=== PATIENT | female | born 1945 | race Caucasian/White ===

== ENCOUNTER 2018-03-18 13:55 | Emergency (ER) | payer MEDICARE ==
[~2018-03-18] VITALS: Ht 170.2 cm; Wt 73.6 kg
[2018-03-18 13:57] VITALS: Ht 170.2 cm; Wt 73.6 kg
[2018-03-18] MEDS ORDERED: COZAAR100 MG PO (14:00)
[2018-03-18] MEDS ORDERED: LIPITOR10 MG PO (14:00)
[2018-03-18] MEDS ORDERED: TOPROL XL50 MG PO (14:01)
[2018-03-18] MEDS ORDERED: HYDRALAZINE HCL10 MG PO (14:02)
[2018-03-18 14:26] LABS: BASOPHILS 0.3 % (0-2); EOSINOPHILS 1.1 % (0-7); HEMATOCRIT 39.3 % (36.0-48.0); HEMOGLOBIN 13.6 g/dL (12-16); IMMATURE GRANULOCYTES 0.3 % (0-5); LYMPHOCYTES 28.5 % (15-50); MCH 30.8 pg (26.0-34.0); MCHC 34.6 g/dL (31.0-37.0); MCV 89.1 fL (80.0-100.0); MEAN PLATELET VOLUME 9.6 fL (7.4-10.4); MONOCYTES 4.5 % (2-11); NEUTROPHILS 65.3 % (40-80); PLATELET COUNT 262 10x3/uL (130-400); RBC 4.41 10x6/uL (4.00-5.40); RDW 13.3 % (11.5-14.5); WBC 6.5 10x3/uL (4.8-10.8)
[2018-03-18 14:38] LABS: INR 0.97 (0.85-1.17); PROTIME 12.5 SECONDS (11.6-15.0)
[2018-03-18 14:39] LABS: APTT 35.7 SECONDS (22.8-39.4)
[2018-03-18 14:40] LABS: D-DIMER-QUANTITATIVE 0.29 ug/mLFEU (0.20-0.54)
[2018-03-18 14:50] LABS: ALBUMIN 3.7 g/dL (3.4-5.0); ALKALINE PHOSPHATASE 87 U/L (46-116); ALT (SGPT) 30 U/L (10-68); CALC OSMOLALITY 276 mosm/kg (275-300); CALCIUM 9.9 mg/dL (8.5-10.1); CARBON DIOXIDE 30.9 mmol/L (21.0-32.0); CHLORIDE - SERUM 100 mmol/L (98-107); CREATININE - SERUM 0.9 mg/dL (0.6-1.3); GLUCOSE 109 mg/dL (74-106); POTASSIUM - SERUM 3.5 mmol/L (3.5-5.1); PROTEIN - SERUM 7.7 g/dL (6.4-8.2); SODIUM 137 mmol/L (136-145); UREA NITROGEN 17 mg/dL (7-18); eGFR NON AFRICAN AMERICAN 65 mL/min (90-120)
[2018-03-18 15:02] LABS: CKMB 0.8 U/L (0.0-3.6); CREATINE KINASE 210 UL (21-215); MAGNESIUM - SERUM 2.2 mg/dL (1.8-2.4); TROPONIN-I 0.024 ng/mL (0.000-0.060)
[2018-03-18 17:11] VITALS: BP 133/88
== END 2018-03-18 17:11 | disposition home or self-care (01) ==
LOC: D.ER 13:55
PROVIDERS: Family Medicine
DX: I10 Essential (primary) hypertension (principal); E87.5 Hyperkalemia; R07.89 Other chest pain

== ENCOUNTER 2019-04-25 05:00 | Day surgery (SDC) | payer MEDICARE ==
[2019-04-24 13:27] LABS: HEMATOCRIT 40.3 % (36.0-48.0); HEMOGLOBIN 13.7 g/dL (12-16); MCH 30.6 pg (26.0-34.0); MEAN PLATELET VOLUME 9.3 fL (7.4-10.4); RBC 4.48 10x6/uL (4.00-5.40); RDW 12.9 % (11.5-14.5); WBC 6.6 10x3/uL (4.8-10.8)
[2019-04-24 14:25] LABS: ANION GAP 12.7 mmol/L (8-16); CALCIUM 9.5 mg/dL (8.5-10.1); POTASSIUM - SERUM 3.7 mmol/L (3.5-5.1)
[~2019-04-25] VITALS: Ht 170.2 cm; Wt 73.9 kg
--- NOTE | ~2019-04-25 | OP ---
PATIENT NAME: NICHOL ROBLES MEDICAL RECORD: [id number] :43 LOCATION:D.OPS ADMISSION DATE: SURGEON: GALEN ROSE DPM DATE OF OPERATION: 04/25/2019 PREOPERATIVE DIAGNOSES: 1. Posterior calcaneal spurring with intratendinous calcifications, left foot. 2. Achilles tendon disruption, left foot. POSTOPERATIVE DIAGNOSES: 1. Posterior calcaneal spurring with intratendinous calcifications, left foot. 2. Achilles tendon disruption, left foot. PROCEDURES: 1. Gastroc recession, left leg. 2. Posterior calcaneal spur removal with removal of intratendinous calcifications. 3. Repair of Achilles tendon, left foot. ANESTHESIA: General with preoperative popliteal block per the anesthesia department. HEMOSTASIS: Left thigh tourniquet at 350 mmHg. PREOPERATIVE DETAILS: The patient was taken to the OR and while lying supine on the gurney, the patient was given general anesthesia. The patient was then placed in the operating table in a prone position. The left extremity was then prepped and draped in the usual aseptic technique followed by exsanguination and inflation of tourniquet. PROCEDURE #1: Gastroc recession, left leg. A 4-cm linear incision was made over the posterior aspect of the left gastroc aponeurosis. The incision was deepened down through subcutaneous tissue being sure to avoid the sural nerve and vein. Dissection was carried down to the peritenon where a linear peritenon incision was made. The peritenon was freed and an incision was made in a V-fashion through the aponeurosis with the foot held in dorsiflexion allowing adequate dorsiflexion of the ankle joint. The wound was flushed and the skin was closed with skin rohit. PROCEDURE #2: Calcaneal spur with removal of intratendinous calcifications of the Achilles tendon. A 15-blade was used to create a 4-cm linear incision over the posterior aspect of the left heel. The incision was deepened down through subcutaneous tissue being sure to avoid all vital structures. Dissection was carried down to the peritenon where a linear incision was made. The Achilles tendon was freed, visualized. At this time, the Achilles tendon was freed from the posterior aspect of the calcaneus. There was noted to be significant posterior calcaneal spurring with intratendinous calcifications. This was all resected and removed, both with dissection as well as a bone saw. Following this, the wound was flushed. PROCEDURE #3: Repair of Achilles tendon, left foot. Utilizing four suture anchors with FiberWire, the Achilles tendon was repaired back to the posterior aspect of the calcaneus in a rigid fashion with excellent reduction of the enlargement as well as strength of the Achilles tendon. The ankle joint was put through range of motion noting excellent structural integrity. The wound was OPERATIVE REPORT [id number] NICHOL ROBLES flushed. The peritenon was repaired with 2-0 Vicryl. The subcutaneous tissue was repaired with 4-0 Rapide and the skin was closed with 4-0 Rapide in a subcuticular technique followed by Dermabond. Adaptic, 4 x 4 and Conform were used to dress the wound followed by application of modified Arroyo compression dressing. The tourniquet was deflated. POSTOPERATIVE DETAILS: The patient tolerated the procedure well and left the OR with vital signs stable and vascular status at preoperative levels. The patient was transported to recovery per anesthesia in stable condition. TRANSINT:[id number] Voice Confirmation ID: [id number] DOCUMENT ID: [id number] GALEN ROSE DPM CC: [id number] DICTATION DATE: 04/25/19 0843 MANAGER COMPLETIONS: 04/25/19 1029 [facility] [address] [id number]
[~2019-04-25 05:00] MED LIST: ASCORBIC ACID500 MG PO; ASPIRIN EC81 M1 PO; COZAAR100 MG PO; HYDRALAZINE HCL25 MG PO; HYZAAR 50-12.51 TAB PO; LIPITOR10 MG PO; MAG-OXIDE400 MG PO; MULTI-DAY VITAM1 TAB PO; TOPROL XL50 MG PO; VITAMIN D31000 UNI2 PO
[2019-04-25 05:46] VITALS: BP 150/94; Ht 170.2 cm; Wt 73.9 kg
--- NOTE | 2019-04-25 09:44 | NUR ---
0850 PATIENT AROUSABLE COMPLAINING OF DIFFICULTY BREATHING. WEAK BILATERAL HAND LINE PALLETIZER AND UNABLE TO HOLD HEAD OFF OF STRETCHER. ANESTHESIA NOTIFIED. Juan Luis GARCIA WASTE TRANSPORTATION TECHNICIAN AND GARY ALVARADO WASTE TRANSPORTATION TECHNICIAN AT BEDSIDE. NEOSTIGMINE AND ROBINOL GIVEN BY WASTE TRANSPORTATION TECHNICIAN.
--- NOTE | 2019-04-25 09:47 | NUR ---
0855 PATIENT ABLE TO HOLD HEAD OFF OF STRETCHER FOR 5 SECONDS. Alan GARCIA EXTRACT OPERATOR AT BESIDE. PATIENT COMPLAIN OF DIFFICULTY BREATHING, STRIDOR PRESENT IN UPPER AIRWAY, BREATH SOUNDS CLEAR. RACEMIC EPI UPD, CHEST XRAY AND 12 LEAD ECG ORDERED AND PERFORMED.
--- NOTE | 2019-04-25 09:49 | NUR ---
0915 PATIENT AWAKE AND ALERT. BREATHING NORMALLY. NO COMPLAINTS OF SOB. SAO2 >99 ON 10L MASK.
--- NOTE | 2019-04-25 13:54 | NUR ---
1100-DISCHARGE CRITERIA MET. REMOVED IV FROM RIGHT HAND WITH CATH INTACT,DISPOSED INTO SHARPS.COVERED SITE WITH BANDAID. REVIEWED POST OPERATIVE AND FOLLOW UP APPOINTMENT WITH PT. VERBALIZED UNDERSTANDING. DRESSING CDI,ABLE TO WIGGLE TOES,WARM TO TOUCH WITH CAP REFILL WNL. DENIES PAIN. VSS.
--- NOTE | 2019-04-25 13:56 | NUR ---
1107-ASSISTED PT WITH DRESSING. ABLE TO TRANSFER INTO W/C X 2 ASSIST. ESCORTED OUT VIA W/C WITH SPOUSE AWAITING TO DRIVE HOME.
== END 2019-04-25 11:07 | disposition home or self-care (01) ==
LOC: D.OPS 05:00 → D.PAN 07:00 → D.OPS 07:00
PROVIDERS: Anesthesiology; ATTEND Podiatrist
DX: M77.32 Calcaneal spur, left foot (principal); M65.872 Other synovitis and tenosynovitis, left ankle and foot; S86.012A Strain of left Achilles tendon, initial encounter; I10 Essential (primary) hypertension